=== PATIENT | female | born 1985 | race Caucasian/White ===

== ENCOUNTER 2022-05-24 13:52 | Emergency (ER) | payer OTHER, SELFPAY ==
[2022-05-24 14:10] VITALS: BP 121/93; PULSE 121; RESP 16; TEMP 36.7; O2SAT 99
--- NOTE | 2022-05-24 14:19 | ED.GENADULT ---
HPI - General Adult General Chief complaint: Urogenital-Female Stated complaint: uti Source: patient Mode of arrival: ambulatory Limitations: no limitations History of Present Illness HPI narrative: Patient presents for evaluation of urinary symptoms and abdominal pain. She states on 05/13/2022 she had a Pap smear. She had some suprapubic cramping thereafter that she described as period cramps . In the latter portion of last week she developed some right upper quadrant quadrant/right flank pain. She later developed some diarrhea and had 1 episode of vomiting. Her right upper quadrant/right flank pain improved earlier this week. She states now she just feels a dull pain in the affected area. She states she had a low-grade fever yesterday with reported reading of 99.3 ?F. She states she has been taking baths frequently to assist with her right upper quadrant/right flank pain. Over the last few days she has developed urinary urgency, frequency, dysuria. She denies any chills, vaginal bleeding or discharge. LMP 04/30/2022. Compliant with oral contraception. She has had diarrhea over the last few days. She states her family members encouraged her to come to be evaluated. She has taken tylenol and ibuprofen without considerable improvement in her symptoms or after Related Data Allergies Allergy/AdvReac Type Severity Reaction Status Date / Time No Known Allergies Allergy Verified 05/24/22 14:22 Review of Systems Review of Systems: CONSTITUTIONAL: Reports low grade fever . Denies chills, or sweats. EYES: Denies visual changes, redness, or discharge. ENT: Denies rhinorrhea, congestion, sore throat, or otalgia. CARDIOVASCULAR: Denies chest pain, palpitations, or edema. RESPIRATORY: Denies cough or dyspnea. GASTROINTESTINAL: Reports recent right upper quadrant pain, now improved. Reports recent nausea, vomiting, and diarrhea. GENITOURINARY: Reports urinary frequency, urgency, dysuria. SKIN: Denies rash or itching. MUSCULOSKELETAL: Denies back pain, joint pain, or myalgia. NEUROLOGIC: Denies headache, numbness, dizziness, or weakness. PSYCHIATRIC: Denies anxiety or depression. [facility] Past Medical History Medical History (Updated 05/24/22 @ 14:30 by Immanuel Serna, ZACK, ) Hypothyroidism Surgical History Surgical History No pertinent past surgical history Family History Family History Father Heart disease Social History Social History Smoking status: Never smoker Substance use: never Living arrangements: with family Gender identity (if verbalized by the patient): Female Spiritual care concerns: No Exam Narrative: GENERAL: Well-appearing, well-nourished, and in no acute distress. HEAD: Normocephalic, atraumatic. EYES: PERRLA and EOMI. ENT: Nares clear, no rhinorrhea or epistaxis. Mucous membranes moist. Oropharynx without tonsillar hypertrophy exudate or other lesions. Bilateral TMs pearly bass nonbulging NECK: Supple. No adenopathy or masses. No carotid bruits or JVD CHEST: Clear to auscultation. No respiratory distress. No wheezes rales or rhonchi HEART: Regular rate and rhythm. No murmur heard. Normal peripheral pulses. ABDOMEN: Soft, nontender, nondistended, normal active bowel sounds. EXTREMITIES: Normal range of motion. No edema. BACK: No CVA tenderness SKIN: Warm, dry, no rash. NEURO: No focal deficits. Alert and oriented x3. PSYCH: Anxious Course Course Emergency Course: This is a 36-year-old female who presented for evaluation of urinary symptoms. There is no evidence of infection in her urine. I did offer to send her to the ER with for evaluation of abdominal pain and diarrhea. She did not feel that is necessary. I think that is reasonable as she does not have abdominal pain at the current
== END 2022-05-24 15:00 | disposition home or self-care (01) ==
PROVIDERS: Emergency Provider Nurse Practitioner
DX: R39.15 Urgency of urination (principal); R35.0 Frequency of micturition; R30.0 Dysuria; E03.9 Hypothyroidism, unspecified
CPT/HCPCS: 81003; 99202; G0463

== ENCOUNTER 2023-02-09 09:00 | Emergency (ER) | payer OTHER, SELFPAY ==
--- NOTE | ~2023-02-09 | XR_ITS ---
Clinical Indication: Chest pain PA and lateral views of the chest: Comparison: None Findings: The lungs are clear, without evidence of focal consolidation or pleural effusion. Cardiome diastinal silhouette is within normal limits. Bones and soft tissues are unremarkable. Impression: Normal chest. Reviewed, dictated and finalized at location . Impression: Normal chest.
--- NOTE | 2023-02-09 09:16 | ED.GENADULT ---
HPI - General Adult General Chief complaint: Unspecified Stated complaint: Body Pain Time Seen by Provider: 02/09/23 09:16 Source: patient Mode of arrival: ambulatory Limitations: no limitations History of Present Illness HPI narrative: Patient is a 37-year-old female that presents with 2 weeks of chest wall pain. Patient states it is not constant and is present with twisting, raising hands above head or lifting objects. Patient states she sometimes feels a pop in her chest and pain is relieved. Denies any shortness of breath, pain radiating to neck or down left arm. Denies any burning sensation in his throat, but does states she has acid reflux and is on medication. Denies obvious injury but has been gardening and lifting heavy pots and soil. Related Data Home Medications Medication Instructions Recorded Confirmed levonorgestrel-ethinyl estradiol 1 tablet PO DAILY 02/09/23 02/09/23 0.1 mg-20 mcg tablet ([place]) levothyroxine 50 mcg tablet 50 mcg PO DAILY 02/09/23 02/09/23 Allergies Allergy/AdvReac Type Severity Reaction Status Date / Time sulfamethoxazole Allergy Hives Verified 02/09/23 09:13 [From Bactrim] trimethoprim [From Bactrim] Allergy Hives Verified 02/09/23 09:13 Review of Systems Review of Systems: All systems reviewed & are unremarkable except as noted in HPI and below Constitutional: Constitutional: Denies body ache(s), Denies chills, Denies fatigue, Denies fever(s), Denies headache(s), Denies malaise and Denies weakness Eyes: Eyes: Denies blurry vision, Denies irritation and Denies loss of vision ENT: Denies otalgia, Denies headache(s), Denies nasal discharge, Denies sinus pain and Denies sore throat Cardiovascular: Cardiovascular: Denies chest pain, Reports chest pain with activity, Denies irregular heart rhythm and Denies dyspnea Respiratory: Respiratory: Denies dyspnea Gastrointestinal: Gastrointestinal: Denies abdominal pain, Denies melena, Denies hematochezia, Denies diarrhea, Denies nausea and Denies vomiting Musculoskeletal: Musculoskeletal: Denies back pain, Denies myalgias and Denies arthralgias Integumentary/Breasts: Skin/Breast: Denies pruritus and Denies rash Neurologic: Denies headache(s), Denies loss of vision and Denies weakness Psychiatric: Psychiatric: Reports no additional psychiatric complaints Endocrine: Endocrine: Denies fatigue PMFSH Past Medical History Medical History (Updated 02/09/23 @ 09:50 by Andreia Rodrigues APRN) Hypothyroidism Surgical History Surgical History No pertinent past surgical history Family History Family History Father Heart disease Social History Social History Smoking status: Never smoker Substance use: never Living arrangements: with family Gender identity (if verbalized by the patient): Female Spiritual care concerns: No Comments At time of signature, agree with nursing past medical, surgical, social and family history. There is no relevant family history pertinent to the presenting complaint. Exam Const: General: cooperative, healthy appearing, comfortable, no acute distress and well nourished Nutritional Appearance: well nourished Orientation/consciousness: patient oriented x3 Limitations: no limitations HENMT: Head: normal to inspection, normocephalic and atraumatic Ears: hearing grossly normal bilaterally and external ears normal Face/Nose/Sinus: Normal external nose present, normal facial exam and face symmetric Face and sinus: normal facial exam and face symmetric Mouth: Yes lip normal Eyes: General: appearance normal, both eyes and all related structures Alignment and Position: alignment normal and position normal Periorbital: periorbital findings normal Eyelids: eyelids normal Pupils: Equal, round and hood
[2023-02-09 09:17] VITALS: BP 135/89; PULSE 94; RESP 18; TEMP 37.4; O2SAT 100
== END 2023-02-09 10:05 | disposition home or self-care (01) ==
PROVIDERS: Emergency Provider Nurse Practitioner Family
DX: R07.89 Other chest pain (principal); E03.9 Hypothyroidism, unspecified
CPT/HCPCS: 71046; 99213; G0463